=== PATIENT | male | born 1965 | race Caucasian/White ===

== ENCOUNTER → 2017-04-09 | Outpatient (CLI) | payer OTHER | LOC: RAD 09:59 | DX: S99.921A Unspecified injury of right foot, initial encounter (principal); X58.XXXA Exposure to other specified factors, initial encounter; Y93.89 Activity, other specified; Y92.89 Other specified places as the place of occurrence of the external cause; Y99.8 Other external cause status ==

== ENCOUNTER 2019-03-31 08:27 | Inpatient (IN) | payer OTHER ==
[2019-03-31] VITALS (8 sets, daily range): BP systolic 78–111; BP diastolic 44–75
[~2019-03-31] VITALS: Ht 165.1 cm; Wt 58.4 kg
[2019-03-31] MEDS ORDERED: NORVASC5 M1 PO (09:11)
[2019-03-31] MEDS ORDERED: LISINOPRIL20 MG PO (09:11)
[2019-03-31 09:15] LABS: ABSOLUTE NEUTROPHILS 4.2 thou/uL (1.4-8.2); BASOPHILS 1.4 % (0.0-2.0); HEMATOCRIT 33.8 % (42.0-52.0); HEMOGLOBIN 11.6 gm/dL (14.0-18.0); LYMPHOCYTES 16.4 % (24.0-44.0); MCH 36.2 pg (26.0-34.0); MCHC 34.4 g/dL (28.0-37.0); MCV 105.3 fL (80.0-100.0); MONOCYTES 4.9 % (1.0-8.0); POLYS 76.3 % (36.0-66.0); RBC 3.21 mil/uL (4.50-6.00); RDW 15.4 % (10.5-14.5); WBC 5.6 thou/uL (4.0-11.0)
[2019-03-31 09:28] LABS: APTT 26.6 Seconds (24.5-32.8); INR 1.1; PROTIME 11.4 Seconds (9.3-11.4)
[2019-03-31 09:37] LABS: ALBUMIN 3.5 g/dL (3.4-5.0); ANION GAP 17 mmol/L (7-16); BUN 89 mg/dL (7-18); CALCIUM 10.1 mg/dL (8.5-10.1); CHLORIDE 93 mmol/L (98-107); CO2 28 mmol/L (21-32); DIRECT BILIRUBIN 0.3 mg/dL (<0.1-0.3); GLUCOSE 125 mg/dL (74-106); SGOT 100 U/L (15-37); SGPT 31 U/L (30-65); SODIUM 138 mmol/L (136-145); TOTAL BILIRUBIN 0.8 mg/dL (<0.1-1.0); TOTAL PROTEIN 7.7 g/dL (6.4-8.2); TROPONIN-I <0.06 ng/mL (<0.06)
[2019-03-31 09:41] LABS: POTASSIUM 2.8 mmol/L (3.5-5.1)
[2019-03-31 10:04] LABS: ANISOCYTOSIS 1+; MACROCYTES 1+; PLATELET COUNT 85 thou/uL (150-400); PLATELET ESTIMATE SLIGHTLY DECREASED
[2019-03-31 10:14] LABS: URINE BLOOD 1+ (Negative); URINE CLARITY CLEAR; URINE COLOR YELLOW; URINE GLUCOSE-RANDOM* TRACE (Negative); URINE KETONES TRACE (Negative); URINE LEUKOCYTES-REFLEX NEGATIVE (Negative); URINE NITRITE-REFLEX NEGATIVE (Negative); URINE PROTEIN (DIPSTICK) 1+ (Negative); URINE SPECIFIC GRAVITY 1.015 (1.005-1.035); URINE UROBILINOGEN 0.2 E.U./dl (0.2-1.0)
[2019-03-31 10:19] LABS: ICTOTEST (BILI CONFIRMATORY) Negative (Negative); URINE BILIRUBIN NEGATIVE (Negative)
[2019-03-31 10:28] LABS: HYALINE CASTS 4-10 Moderate /LPF (None Seen)
[2019-03-31 10:29] LABS: CRYSTALS None Seen /LPF (None Seen); SQUAMOUS 0-3 Few /LPF (0-3)
[2019-03-31 10:30] LABS: URINE RBC 0-2 Rare /HPF (0-2); URINE WBC-REFLEX 0-5 Rare /HPF (0-5)
[2019-03-31 10:31] LABS: BACTERIA-REFLEX 1-9 Few /HPF (None Seen)
--- NOTE | 2019-03-31 15:39 | NUR ---
ASSESSMENT: CM REVIEWED CHART AND MET WITH PATIENT AT THE BEDSIDE. PT WAS ASLEEP AND PATIENTS MOTHER WAS PRESENT AT THE BEDSIDE. PT WAS ADMITTED FOR HYPOTENSION. PTS MOTHER PT LIVES IN A HOUSE ALONE. THERE ARE TWO STEPS TO ENTER THE HOME AND ABOUT 7 STEPS WITH HANDRAILS TO THE BASEMENT. PT IS INDEPENDENT WITH ADLS AND AMBULATION. PTS PCP IS . PATIENTS MOTHER REPORTS THAT PT HAD NOT ANSWERED HIS PHONE IN ABOUT 3 WEEKS. SHE STATES THERE WILL BE TIME HER WONT ANSWER FOR A WEEK OR TWO BUT AFTER THREE WEEKS SHE GOT CONCERNED. SHE STATES THAT PATIENTS HOUSE IS NOT WELL EQUIPT AND REPORTS THAT THE ONLY THING ON IS ELECTRICITY AND THE GAS IS TURNED OFF, ALOT OF FOOD IS , AND IS DIRTY. PTS MOTHER REPORTS HE HAS NOT HAD HH BEFORE. PT HAS NO INSURANCE AT THIS TIME. CM SENT FACESHEET TO [employer]. CM WILL CONTINUE TO FOLLOW TO ASSIST NEEDED.
--- NOTE | 2019-03-31 17:27 | NUR ---
PATIENT ADMIT TO UNIT AT 1215 FROM ER. A/O X4. GENERLIZED WEAKNESS. BP ON LOW SIDE. POOR APPATITE, DRY SKIN CALLED IETHYOSIS VULGARIS. DENIES PAIN. FALL PRECUATION ON. WILL KEEP MONITOR.
--- NOTE | 2019-03-31 18:04 | EKG ---
[address] [address] ELECTROCARDIOGRAM REPORT Name: KELTON FERNANDO Room #: 355-P ADM IN M.R.#: [id number] ������������������ Admission: 03/31/19 ������������������ Attend Phys: Norberto Lopes DO Discharge: ������������������ Date of : 69 Report #: [id number] ����������������������������������������������������������������� [id number] THIS REPORT FOR: //name// [facility] ED Test Date: 2019-03-31 Test Time: 08:37:43 Pat Name: KELTON FERNANDO Department: Room: [facility] Gender: M Capacity Manager: [place] : 1965 Requested By: Catarino Chappell Order Number: [id number] MD: Gene John Measurements Intervals [place] Rate: 95 P: 68 W[place]: 154 QRS: 66 QRSD: 80 T: 64 QT: 393 QTc: 494 Interpretive Statements Sinus rhythm Nonspecific repol abnormality, diffuse leads No previous ECG available for comparison Electronically Signed On 03-31-2019 18:04:25 CDT by Gene John [email or web address] ��������������������������������������������� <ELECTRONICALLY SIGNED> ���������������������������������������� By: Gene John MD ��������������������������������������������� 03/31/19 1804 0837 6 Gene John MD /GELA
[2019-04-01] VITALS (7 sets, daily range): BP systolic 92–113; BP diastolic 65–83
--- NOTE | 2019-04-01 03:40 | NUR ---
SLEEPING WITHOUT DIFFICULTY. STARTTELS EASILY WHEN SLEEPING. MAINTAIN SAFE ENVIRONEMENT. ASSIST UP TO COMODE PRN WITH ONE ASSIST AND GAIT BELT. WORKING ON GOALS AND PLAN OF CARE FOR NOC. PROGRESSING SLOWLY TOWARDS DISCHARGE GOALS. DENIES COMPLAINTS OF PAIN OR SHORTNESS OF AIR. CONTINUE TO ASSES.
[2019-04-01 06:05] LABS: HEMATOCRIT 25.6 % (42.0-52.0); MCH 36.5 pg (26.0-34.0); MCHC 34.7 g/dL (28.0-37.0); MCV 105.3 fL (80.0-100.0); PLATELET COUNT 54 thou/uL (150-400); RBC 2.43 mil/uL (4.50-6.00); RDW 15.5 % (10.5-14.5); WBC 2.9 thou/uL (4.0-11.0)
[2019-04-01 06:07] LABS: HEMOGLOBIN 8.9 gm/dL (14.0-18.0)
[2019-04-01 06:21] LABS: ALBUMIN 2.5 g/dL (3.4-5.0); CALCIUM 8.3 mg/dL (8.5-10.1); POTASSIUM 3.1 mmol/L (3.5-5.1); TOTAL BILIRUBIN 0.5 mg/dL (<0.1-1.0); TOTAL PROTEIN 5.7 g/dL (6.4-8.2)
[2019-04-01 06:26] LABS: CREATININE 1.6 mg/dL (0.7-1.3)
[2019-04-01 07:35] LABS: ABSOLUTE NEUTROPHILS 1.7 thou/uL (1.4-8.2); ANISOCYTOSIS 1+
[2019-04-01 07:36] LABS: MACROCYTES 1+
[2019-04-01 12:22] LABS: AMP/METHAMP Negative (Negative); BARBITURATES Negative (Negative); BENZODIAZEPINES Negative (Negative); COCAINE Negative (Negative); METHADONE Negative (Negative); OPIATES Negative (Negative); PCP Negative (Negative)
--- NOTE | 2019-04-01 14:43 | NUR ---
ON-GOING ASSESSMENT: CM REVIEWED CHART AND MET WITH PATIENT THE BEDSIDE. PT STATING HE IS DOING WELL AND HE IS GOING TO GO STAY WITH HIS MOTHER FOR A BRIEF AMOUNT OF TIME AFTER DISCHARGE. CM DISCUSSED DPOA PAPERWORK RECOMMENDED BY ATTENDING. PT IS INTERSTED IN APPOINTING HIS MOTHER HIS DPOA. CM PROVIDED PATIENT WITH DPOA PACKET AND INSTRUCTED IF HE COMPLETES IT AT THE HOSPITAL HE CAN NOTIFY THE BEDSIDE RN TO [facility] OR [facility] TO GET IT NOTARIZED. CM ALSO SPOKE WITH PATIENTS MOTHER ALBINO WHO CONFIRMED THE DISCHARGE PLAN. CM WILL CONTINUE TO FOLLOW TO ASSIST NEEDED.
--- NOTE | 2019-04-01 17:31 | NUR ---
ASSUMED PATIENT CARE AT 0700. A/O X4. PLEASANT. STILL FEELS WEAK. PEOGRESSING TOWARDS POC GOALS.
--- NOTE | 2019-04-02 03:04 | NUR ---
SLEPT MOST OF SHIFT. UP WITH STANDBY ASSIST AND GAIT BELT. GAIT MORE STEADY THAN PREVIOUS NOC. MAINTAIN SAFE ENVIRONMENT. WORKING ON GOALS AND PLAN OF CARE FOR NOC. PROGRESSING SLOWLY TOWARDS DISCARGE GOALS. DENIES COMPLAINTS OF PAIN, SHORTNESS OF AIR OR DIZZINESS. CONTINUE TO ASSES CLOESLY.
[2019-04-02 04:10] VITALS: BP 109/80
[2019-04-02 05:44] LABS: HEMATOCRIT 25.5 % (42.0-52.0); HEMOGLOBIN 8.7 gm/dL (14.0-18.0); MCHC 34.1 g/dL (28.0-37.0); MCV 105.5 fL (80.0-100.0); RBC 2.42 mil/uL (4.50-6.00); RDW 15.5 % (10.5-14.5); WBC 3.2 thou/uL (4.0-11.0)
[2019-04-02 06:08] LABS: ALBUMIN 2.3 g/dL (3.4-5.0); CALCIUM 7.4 mg/dL (8.5-10.1); TOTAL BILIRUBIN 0.4 mg/dL (<0.1-1.0); TOTAL PROTEIN 5.4 g/dL (6.4-8.2)
[2019-04-02 06:17] LABS: MAGNESIUM 0.7 mg/dL (1.8-2.4)
[2019-04-02 07:51] VITALS: BP 120/87
[2019-04-02 11:53] VITALS: BP 115/80
[2019-04-02] MEDS ORDERED: K-DUR 20 MEQ T20 MEQ PO (12:26)
[2019-04-02] MEDS ORDERED: COLACE 100 MG100 MG PO (12:26)
[2019-04-02] MEDS ORDERED: MAGNESIUM400 MG PO (12:26)
[2019-04-02] MEDS ORDERED: IRON325 PO (12:26)
[2019-04-02 12:34] LABS: POTASSIUM 3.7 mmol/L (3.5-5.1)
[2019-04-02 15:28] VITALS: BP 115/80
[2019-04-02 15:31] VITALS: BP 115/80
--- NOTE | 2019-04-02 16:10 | NUR ---
Assume care of Pt at 0700. Pt AOX3 pleasant in no acute distress. Up w/ SBA to BR. good appetite. labs showing much improvement. discharge instructed provided, with mother at bedside. pt agreeable and understand. all concerns and questions addressed.
== END 2019-04-02 16:36 | disposition home or self-care (01) | DRG 682 ==
LOC: ER 08:27 → 3W 11:36 → EROBS 11:36 → 3W 12:14 → ENTRNSPT 04-02 16:24 → 3W 04-02 16:36
PROVIDERS: Emergency Medicine; Internal Medicine; Nurse Practitioner Acute Care; Nurse Practitioner Family; ADMIT Internal Medicine Geriatric Medicine
DX: N17.9 Acute kidney failure, unspecified (principal); G92 Toxic encephalopathy; E43 Unspecified severe protein-calorie malnutrition; F17.210 Nicotine dependence, cigarettes, uncomplicated; E87.6 Hypokalemia; E86.0 Dehydration; E86.1 Hypovolemia; I10 Essential (primary) hypertension; F10.10 Alcohol abuse, uncomplicated; Y90.9 Presence of alcohol in blood, level not specified; D64.9 Anemia, unspecified; D70.9 Neutropenia, unspecified; D69.6 Thrombocytopenia, unspecified; K70.10 Alcoholic hepatitis without ascites; R53.81 Other malaise; E83.42 Hypomagnesemia; Z79.899 Other long term (current) drug therapy; Z68.21 Body mass index [BMI] 21.0-21.9, adult
CPT/HCPCS: 10879